=== PATIENT | female | born 1960 | race Caucasian/White ===

== ENCOUNTER 2024-11-08 11:45 | Emergency (ER) | payer OTHER ==
[2024-11-08] MEDS: IBUPROFEN 800 MG TAB PO STA (12:28)
--- NOTE | 2024-11-08 12:42 | ED ---
Fall HPI - General Chief Complaint: Fall Stated Complaint: Fall-R ankle/R rib injury Time Seen by Provider: 11/08/24 12:40 Source: patient, EMS, RN notes reviewed Mode of arrival: EMS - History of Present Illness Initial Comments: 64-year-old female presenting for right ankle/right rib injury yesterday. States last night she was getting out of the car and slipped on ice, rolling her right ankle. Patient then went into the house and tried to put pressure on her right ankle which caused her to collapse and fall, hitting her right rib on the bathtub. Patient is unable to weight-bear. Patient is having pain with deep inspiration and reports hearing clicking in the right ribs. Denies blood thinners. Denies head injury or loss of consciousness. - Related Data Previous Rx's Medication Instructions Recorded Cyclobenzaprine [Flexeril] 10 mg PO TID PRN #15 tab 11/08/24 HYDROcodone/APAP 5-325MG [[place] 5] 1 each PO Q6HR PRN #12 tab 11/08/24 Lidocaine 4% Patch 1 patch TOPICAL DAILY PRN 7 Days 11/08/24 #7 patch Ondansetron Odt [Zofran Odt] 4 mg PO Q8HR PRN #10 tab 11/08/24 Allergies Allergy/AdvReac Type Severity Reaction Status Date / Time Latex, Natural Rubber Allergy Itching Verified 11/08/24 11:59 Review of Systems ROS Statement: Those systems with pertinent positive or pertinent negative responses have been documented in the HPI. ROS Other: All systems not noted in ROS Statement are negative. Past Medical History Past Medical History: Cancer Additional Past Medical History / Comment(s): Colorectal CA 2022, resolved. History of Any Multi-Drug Resistant Organisms: None Reported Past Surgical History: Hysterectomy Past Psychological History: No Psychological Hx Reported Smoking Status: Former smoker Past Alcohol Use History: Occasional General Exam Limitations: physical limitation General appearance: alert, in no apparent distress Head exam: Present: atraumatic, normocephalic, normal inspection Eye exam: Present: normal appearance, PERRL, EOMI. Absent: scleral icterus, conjunctival injection, periorbital swelling Neck exam: Present: normal inspection. Absent: tenderness, meningismus, lymphadenopathy Respiratory exam: Present: normal lung sounds bilaterally, chest wall tenderness (Reproducible right lateral rib tenderness). Absent: respiratory distress, wheezes, rales, rhonchi, stridor Cardiovascular Exam: Present: regular rate, normal rhythm, normal heart sounds. Absent: systolic murmur, diastolic murmur, rubs, gallop, clicks Right Lower Leg exam: Present: full ROM. Absent: tenderness, swelling Ankle exam: Present: tenderness, swelling. Absent: normal inspection (Diffuse edema and contusions present diffusely across ankle including lateral and medial aspects extending into distal right leg), full ROM Foot/Toe exam: Present: normal inspection, full ROM. Absent: tenderness, swelling Neurovascular tendon exam: Present: no vascular compromise. Absent: pulse deficit, abnormal cap refill Neurological exam: Present: alert, oriented X3 Psychiatric exam: Present: normal affect, normal mood Skin exam: Present: warm, dry, intact, normal color. Absent: rash Course Vital Signs 11/08/24 11/08/24 11/08/24 11:49 12:23 14:40 Temperature 98.3 F 98.1 F Pulse Rate 98 92 Respiratory 18 20 18 Rate Blood Pressure 162/89 151/87 O2 Sat by Pulse 95 96 Oximetry Procedures - Orthopedic Splinting/Casting Injury #1 Side: right Lower Extremity Injury Location: ankle Lower Extremity Immobilizer: stirrup splint Other Orthopedic Equipment: crutches Additional Comments: Neurovascularly intact status post splint Medical Decision Making - Medical Decision Making Was pt. sent in by a medical professional or institution (Dr. PA, [employer], urgent care, hospital, or [facility]...) When possible be specific @ -No Did you speak to anyone other than the patient for history (EMS, parent, family, police, friend...)? What history was obtained from this source @ -No Did you review nursing and triage notes (agree or disagree)? Why? @ -I reviewed and agree with nursing and triage notes Were old charts reviewed (outside hosp., previous admission, EMS record, old EKG, old radiological studies, urgent care reports/EKG's, [facility] records)? Report findings @ -No old charts were reviewed Differential Diagnosis (chest pain, altered mental status, abdominal pain women, abdominal pain men, vaginal bleeding, weakness, fever, dyspnea, syncope, headache, dizziness, GI bleed, back pain, seizure, CVA, palpatations, mental health, musculoskeletal)? @ -Differential Musculoskeletal Muscular strain, contusion, ligament sprain, fracture, arthritis, septic arthritis, bursitis, cellulitis, muscle spasm, nerve compression, DVT, arterial occlusion, herpes zoster, electrolyte abnormality, tumor.... This is not meant to be in all inclusive list EKG interpreted by me (3pts min.). @ -None X-rays interpreted by me (1pt min.). @ -Xray right rib reveals acute minimally displaced fracture through lateral right eighth rib, mild right midlung linear scarring and/or atelectasis, no suspicious acute pulmonary process. Right ankle reveals bimalleolar fracture with mortise disruption. Comminuted displaced fracture of lateral malleolus and displaced transverse fracture of the medial malleolus with 1.[address] interpreted by me (1pt min.). @ -None done U/S interpreted by me (1pt. min.). @ -None done What testing was considered but not performed or refused? (CT, X-rays, U/S, labs)? Why? @ -None What meds were considered but not given or refused? Why? @ -None Did you discuss the management of the patient with other professionals (professionals i.e. , PA, [employer], lab, RT, psych nurse, protective services social worker, repairer welding equipment, teacher, landcare officer, nurse case management)? Give summary @ -No Was smoking cessation discussed for >3mins.? @ -No Was critical care preformed (if so, how long)? @ -No Were there social determinants of health that impacted care today? How? (Homelessness, low income, unemployed, alcoholism, drug addiction, transportation, low edu. Level, literacy, decrease access to med. care, [facility], rehab)? @ -No Was there de-escalation of care discussed even if they declined (Discuss DNR or withdrawal of care, Hospice)? DNR status @ -No What co-morbidities impacted this encounter? (DM, HTN, Smoking, COPD, CAD, Cancer, CVA, ARF, Chemo, Hep., AIDS, mental health diagnosis, sleep apnea, morbid obesity)? @ -None Was patient admitted / discharged? Hospital course, mention meds given and route, prescriptions, significant lab abnormalities, going to OR and other pertinent info. @ -Discharge. Patient was provided with analgesics. X-ray right rib reveals acute minimally displaced fracture through the lateral right eighth rib. Right ankle x-ray reveals bimalleolar fracture with mortise disruption. Results di scussed with patient. Patient was provided with incentive spirometer. Stirrup splint performed to right ankle. Advised orthopedic follow-up. Appropriate return precautions and supportive care discussed. Crutches provided. Patient discharged with appropriate analgesics. Case was discussed with my ED attending Dr. [place]. Undiagnosed new problem with uncertain prognosis? @ -No Drug Therapy requiring intensive monitoring for toxicity (Heparin, Nitro, Insulin, Cardizem)? @ -No Were any procedures done? @ -Orthopedic splint right ankle Diagnosis/symptom? @ -Right rib fracture, right ankle fracture Acute, or Chronic, or Acute on Chronic? @ -Acute Uncomplicated (without systemic symptoms) or Complicated (systemic symptoms)? @ -Uncomplicated Side effects of treatment? @ -No Exacerbation, Progression, or Severe Exacerbation? @ -No Poses a threat to life or bodily function? How? (Chest pain, [place], [place], pneumonia, PE, COPD, DKA, ARF, appy, cholecystitis, CVA, Diverticulitis, Homicidal, Suicida l, threat to staff... and all critical care pts) @ -No Disposition Clinical Impression: Closed right ankle fracture, Right rib fracture Disposition: HOME SELF-CARE Condition: Stable Instructions (If sedation given, give patient instructions): Ankle Fracture (ED), Rib Fracture (ED) Additional Instructions: Take [place], Flexeril, and lidocaine patches as needed for pain. Use incentive spirometer 10 times hourly while awake. Follow-up with orthopedics next week as discussed. Keep splint dry and remain nonweightbearing. Please return to the Emergency Department if symptoms worsen or any other concerns. Prescriptions: Cyclobenzaprine [Flexeril] 10 mg PO TID PRN #15 tab PRN Reason: Muscle Spasm Lidocaine 4% Patch 1 patch TOPICAL DAILY PRN 7 Days #7 patch PRN Reason: Pain HYDROcodone/APAP 5-325MG [[place] 5] 1 each PO Q6HR PRN #12 tab PRN Reason: Pain Ondansetron Odt [Zofran Odt] 4 mg PO Q8HR PRN #10 tab PRN Reason: Nausea Is patient prescribed a controlled substance at d/c from ED?: Yes When asked, does pt state using other controlled substances?: No If prescribed controlled substance>3 days was MAPS reviewed?: Prescribed <3 Days If opioid is for acute pain is fill amount 7 days or less?: Yes Referrals: Nonstaff,Physician [Primary Care Provider] - 1-2 days Pepe Machado MD [STAFF PHYSICIAN] - 1-2 days Time of Disposition: 13:45
--- NOTE | 2024-11-08 13:09 | XR ---
EXAMINATION TYPE: XR ankle complete RT DATE OF EXAM: 11/08/2024 12:54 PM COMPARISON: None. CLINICAL INDICATION: Female, 64 years old with history of right ankle injury, pain TECHNIQUE: Frontal, lateral and oblique images of the right ankle are obtained. FINDINGS: There is comminuted displaced fracture of the lateral malleolus. There is displaced transv erse fracture of the medial malleolus with 1.4 cm fracture fragment . Ankle mortise is disrupted with lateral shifting of the talus and medial widening. The overlying soft tissue appears unremarkable. N o significant swelling is seen. IMPRESSION: There is age indeterminate bimalleolar fracture with mortise disruption. Possible acute fracture. [facility], , 11/08/2024 1:07 PM
--- NOTE | 2024-11-08 13:12 | XR ---
EXAMINATION TYPE: XR ribs RT w pa chest xray DATE OF EXAM: 11/08/2024 12:54 PM COMPARISON: None. CLINICAL INDICATION: Female, 64 years old with history of right rib injury, TECHNIQUE: Single frontal view of the chest is obtained. A frontal and oblique images of the right-si ded ribs. FINDINGS: There is right midlung linear scarring and/or atelectasis. Left lung is clear. The cardiac silhouette size is within normal limits. The osseous structures are intact. Dedicated images of the right-sided ribs show acute minimally displaced vertical fracture through the lateral right eighth rib IMPRESSION: 1. Acute minimally displaced fracture through lateral right eighth rib. 2. Mild right midlung linear scarring and/or atelectasis. No suspicious acute pulmonary process. [facility], , 11/08/2024 1:10 PM
[2024-11-08] MEDS: LIDOCAINE 4% PATCH TOPICAL ONE (14:16)
[2024-11-08] MEDS: HYDROcodone/APAP 5-325MG 1 EACH TAB PO STA (14:17)
[2024-11-08] MEDS: CYCLOBENZAPRINE 10 MG TAB PO STA (14:17)
[2024-11-08 14:44] VITALS: BP 151/87; PULSE 92; RESP 18; TEMP 98.1
== END 2024-11-08 14:44 | disposition home or self-care (01) ==
LOC: EC 11:45
DX: S82.841A Displaced bimalleolar fracture of right lower leg, initial encounter for closed fracture (principal); S22.31XA Fracture of one rib, right side, initial encounter for closed fracture; Z87.891 Personal history of nicotine dependence; Z91.040 Latex allergy status; W00.0XXA Fall on same level due to ice and snow, initial encounter; Y92.002 Bathroom of unspecified non-institutional (private) residence as the place of occurrence of the external cause
CPT/HCPCS: 29515; 99285